=== PATIENT | female | born 1980 | race African-American/Black ===

== ENCOUNTER 2021-02-07 09:39 | Emergency (ER) | payer MEDICAID, OTHER ==
[~2021-02-07] VITALS: Ht 180.3 cm; Wt 102.1 kg
[2021-02-07 09:43] VITALS: BP 130/90
--- NOTE | 2021-02-07 09:45 | NUR ---
PT AMBULATED TO BED 8.
--- NOTE | 2021-02-07 09:50 | NUR ---
Patient is a 40 y/o female c/o productive cough, congestion, runny nose x1 week. Patient reports history of smoking. Patient denies Covid exposure. Patient reports history of smoking. Patient also c/o vaginal discharge that is foul smelling; also has vaginal itching and patient reports having unprotected sex. PMH: Bronchitis NKDA Meds: None
--- NOTE | 2021-02-07 09:57 | NUR ---
Patient being evaluated by Dr. Mg at bedside.
--- NOTE | 2021-02-07 09:57 | NUR ---
[facility] - 02/07/21 at [address] Mg at the bedside evaluating patient.
[2021-02-07] MEDS ORDERED: cefTRIAXone 500 MG in LIDOCAINE MPF 1% 1 ML IM ONE (10:05)
--- NOTE | 2021-02-07 10:31 | NUR ---
xray at bed side
--- NOTE | 2021-02-07 10:32 | NUR ---
Novel Covid swab done by this fiction writer and taken to the lab by ROSE Rene.
[2021-02-07] MEDS ORDERED: cefTRIAXone 500 MG VIAL ONE (10:34)
[2021-02-07] MEDS ORDERED: LIDOCAINE MPF 1% 5 ML ONE (10:34)
[2021-02-07] MEDS ORDERED: METR500T1 PO (11:23)
[2021-02-07] MEDS ORDERED: DOXY-487 PO (11:23)
--- NOTE | 2021-02-07 11:31 | NUR ---
Patient discharged with v/s stable. Written and verbal after care instructions given and explained. Patient alert, oriented and verbalized understanding of instructions. Ambulatory with steady gait. All questions addressed prior to discharge. ID band removed. Patient advised to follow up with PMD. Rx of Metronidazole 500mg tab, 1 tab twie a day for infection for 7 days; Doxycycline Hyclate 100mg tab, 1 tab oral twice a day for 14 days given. Patient educated on indication of medication including possible reaction and side effects. Opportunity to ask questions provided and answered.
[2021-02-07 11:33] VITALS: BP 139/79
== END 2021-02-07 11:31 | disposition home or self-care (01) ==
LOC: MED 09:39
DX: J06.9 Acute upper respiratory infection, unspecified (principal); Z20.822 Contact with and (suspected) exposure to COVID-19; N76.0 Acute vaginitis; B96.89 Other specified bacterial agents as the cause of diseases classified elsewhere; A64 Unspecified sexually transmitted disease; Z79.899 Other long term (current) drug therapy
CPT/HCPCS: 36415; 71045; 81002; 81025; 87210; 96372; 99284; J0696; J2001; U0003